=== PATIENT | female | born 1990 | race Caucasian/White ===

== ENCOUNTER 2016-12-04 18:13 | Emergency (ER) | payer BC ==
--- NOTE | 2016-12-04 19:23 | UC ---
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 - History of Current Complaint Chief Complaint: UCUpperExtremity Stated Complaint: WRIST INJURY Time Seen by Provider: 12/04/16 19:00 Hx Obtained From: Patient Hx Last Menstrual Period: 2 WEEKS AGO ?: No Onset/Duration: Sudden Onset, Lasting Days - 2, Still Present Severity Initially: Mild Severity Currently: Mild Pain Intensity: 4 Pain Scale Used: 0-10 Numeric Location Of Pain: Is Discrete @ - both forearms--radial aspect Character: Aching, Throbbing Aggravating Factor(s): Movement Alleviating Factor(s): Nothing Associated Signs And Symptoms: Positive: Swelling Related History: Dominant Hand Right - Allergies/Home Medications Allergies/Adverse Reactions: Allergies Allergy/AdvReac Type Severity Reaction Status Date / Time No Known Allergies Allergy Verified 12/04/16 18:48 Home Medications: Home Medications Ibuprofen TAB* [Advil TAB*] 600 mg PO PRN 12/04/16 [History] PMH/Surg Hx/FS Hx/Imm Hx Previously Healthy: Yes - Surgical History Surgical History: None - Family History Known Family History: Positive: None - Social History Occupation: Employed Full-time Lives: With Family Alcohol Use: Occasionally Substance Use Type: None Smoking Status (MU): Never Smoked Tobacco Review of Systems Constitutional: Negative Skin: Negative Eyes: Negative ENT: Negative Respiratory: Negative Cardiovascular: Negative Gastrointestinal: Negative Genitourinary: Negative Motor: Negative Neurovascular: Negative Musculoskeletal: Negative, Arthralgia Neurological: Negative Psychological: Negative All Other Systems Reviewed And Are Negative: Yes Physical Exam Triage Information Reviewed: Yes Appearance: Well-Appearing, No Pain Distress, Well-Nourished Vital Signs: Initial Vital Signs Temp 99.7 F 12/04/16 18:42 Pulse 68 12/04/16 18:42 Resp 16 12/04/16 18:42 BP 123/65 12/04/16 18:42 Pulse Ox 100 12/04/16 18:42 Vital Signs Reviewed: Yes Eye Exam: Normal Eyes: Positive: Conjunctiva Clear ENT Exam: Normal ENT: Positive: Normal ENT inspection, Hearing grossly normal, Pharynx normal, TMs normal. Negative: Nasal congestion, Nasal drainage, Tonsillar swelling, Tonsillar exudate, Trismus, Muffled/hoarse voice Dental Exam: Normal Neck exam: Normal Neck: Positive: Supple, Nontender, No Lymphadenopathy Respiratory Exam: Normal Respiratory: Positive: Chest non-tender, Lungs clear, Normal breath sounds, No respiratory distress, No accessory muscle use Cardiovascular Exam: Normal Cardiovascular: Positive: RRR, No Murmur, Pulses Normal, Brisk Capillary Refill Musculoskeletal Exam: Normal Musculoskeletal: Positive: Strength Intact, ROM Intact, No Edema Neurological Exam: Normal Neurological: Positive: Alert, Muscle Tone Normal Psychological Exam: Normal Skin Exam: Normal Upper Extremity Course/Dx - Course Course Of Treatment: dot wrap ice, ibuprofen qid, follow with ortho in 1 week should symptoms not resolve - Differential Dx/Diagnosis Differential Diagnosis/HQI/PQRI: Bursitis, Fracture (Open), Strain, Sprain, Other - tendonitis Provider Diagnoses: b/l tendonitis forearms Discharge - Discharge Plan Condition: Stable Disposition: HOME Patient Education Materials: Ibuprofen (By mouth), Tendinitis (ED), Ice Pack Application (ED) Referrals: Mel Darling MD [Medical Doctor] - 1 Week
== END 2016-12-04 19:52 | disposition home or self-care (01) ==
LOC: UCEAST 18:13
DX: M77.9 Enthesopathy, unspecified (principal)
CPT/HCPCS: 99202; G0463